=== PATIENT | male | born 1960 | race African-American/Black ===

== ENCOUNTER 2016-06-06 11:13 | Emergency (ER) | payer OTHER, MEDICARE ==
[~2016-06-06] VITALS: Ht 182.9 cm; Wt 119.3 kg
[~2016-06-06 11:13] MED LIST: ALLOPURINOL100 M1 PO; ALLOPURINOL100 MG PO; CARVEDILOL3.125 MG PO; CARVEDILOL6.25 M1 PO; COLCHICINE0.6 M1 PO; COLCHICINE0.6 M2 PO; COLCHICINE0.6 MG PO; COREG 3.125M3.125 MG PO; ECOTRIN81 MG PO; FUROSEMIDE20 MG PO; INDOMETHACIN50 M1 PO; INDOMETHACIN50 MG PO; LISINOPRIL20 MG PO; PERCOCET 325 MG1 TA2 PO; PERCOCET 5-3251 EACH PO; POTASSIUM CHLO20 ME2 PO; PROAIR HFA8.5 GM INH; SIMVASTATIN40 MG PO; SPIRIVA18 MCG INH; SYMBICORT 16010.2 GM INH; [UNRECOGNIZED DRUG - SUPPLY]
--- NOTE | 2016-06-06 12:02 | ED UPPER/LOWER EXTREMITY COMPL ---
History of Present Illness General Chief Complaint: General Adult Stated Complaint: RIGHT ANKLE /RIGHT WRIST PAIN HX GOUT Source: patient Exam Limitations: no limitations Vital Signs & Intake/Output Vital Signs & Intake/Output Vital Signs Date Time Temp Pulse Resp B/P Pulse O2 O2 Flow FiO2 Ox Delivery Rate 06/06 1207 97.0 100 140/89 06/06 1121 96.9 91 16 144/61 98 Room Air Allergies Coded Allergies: NO KNOWN ALLERGIES (03/20/16) Triage Note: PT STATES HE HAS HX OF GOUT AND THINKS HE HAS IT IN HIS RIGHT HAND AND RIGHT FOOT. PT STATES HE MAY HAVE HAD DEVIL EGGS WITH CRAB MEAT IN IT LAST EVENING. Triage Nurses Notes Reviewed? yes HPI: This patient is a 55-year-old male with a past medical history including diabetes and gout who presented to the emergency department today accompanied by his for evaluation of a questionable gout flare. The patient reported that last night he ate deviled eggs and did not realize that there was seafood in it. He reported that he woke up this morning with 10 on 10 pain in his right wrist and right ankle. He reported that the areas are throbbing, swollen, and constant in nature. Worse with movement. No palliative factors. The patient did try taking his previously prescribed colchicine without any relief of his symptoms. The patient denied any fevers or chills. He denied any trauma to the areas. (ANTONINO MARCUM,FOREST) Reconcile Medications Albuterol Sulfate (Albuterol Sulfate Hfa) 0.09 MG/Actuation CECILIA 2 PUFF INH Q4- 6 PRN PRN SHORTNESS OF BREATH (Reported) 90 MCG PER PUFF Allopurinol 100 MG TABLET 1 TAB PO DAILY GOUT Allopurinol 100 MG TABLET 1 TAB PO DAILY GOUT Aspirin (Ecotrin) 81 MG ECT 1 TAB PO DAILY HEART (Reported) Budesonide/Formoterol Fumara (Symbicort 160-4.5 Mcg Inhaler) 160 MCG/4.5 MCG PUF 2 PUF INH BID ASTHMA/COPD (Reported) Carvedilol 6.25 MG TAB 1 TAB PO BID HEART (Reported) Colchicine 0.6 MG TAB 1 TAB PO DAILY gout Colchicine 0.6 MG TABLET 1 TAB PO DAILY GOUT Furosemide 20 MG TAB 1 TAB PO DAILY DIURETIC (Reported) Indomethacin 50 MG CAPSULE 1 CAP PO TID GOUT with food Lisinopril 20 MG TABLET 1 TAB PO DAILY BP (Reported) Oxycodone HCl/Acetaminophen (Percocet 5-325 MG Tablet) 5 MG-325 MG TABLET 1 TAB PO TID PRN PAIN Oxycodone HCl/Acetaminophen (Percocet 5-325 MG Tablet) 5 MG-325 MG TABLET 1 TAB PO BID PRN PAIN Potassium Chloride 20 MEQ TAB.ER.PRT 1 TAB PO DAILY SUPPLEMENT (Reported) Simvastatin 40 MG TABLET 1 TAB PO QPM CHOLESTEROL (Reported) Tiotropium [place] (Spiriva) 18 MCG CAP 1 CAP INH DAILY COPD (Reported) (JUAN MICHAELS,MARGIE) Past History Travel History Traveled to [place] past 21 day No Medical History Any Pertinent Medical History? 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 No (FOREST MUÑIZ PA-C) Review of Systems Review of Systems Constitutional: Reports: no symptoms. EENTM: Reports: no symptoms. Respiratory: Reports: no symptoms. Cardiovascular: Reports: no symptoms. Gastrointestinal/Abdominal: Reports: no symptoms. Musculoskeletal: Reports: see HPI. Skin: Reports: see HPI. Neurological/Psychological: Reports: no symptoms. All Other Systems: Reviewed and Negative (FOREST MUÑIZ PA-C) Physical Exam Physical Exam General Appearance: well developed/nourished, no apparent distress, alert, awake Comments: Well-developed well-nourished person in no acute distress HEENT: Normal EENT exam, head normocephalic, moist mucous membranes Neck: Supple Back: Normal inspection Cardiovascular: Regular rate and rhythm with no murmurs Respiratory: No respiratory distress. Speaking sentences Right upper extremity: Edema circumferentially to the wrist with limited range of motion at the wrist due to pain. Mild amount of overlying erythema. No overlying ecchymosis. No bony or muscular deformities. Radial brachial pulses 2+ and strong. Capillary refill less than 2 seconds. Exquisitely tender to palpation over the wrist Right lower extremity: Circumferential edema to the ankle with limited range of motion of the ankle due to pain. Mild amount of overlying erythema with no overlying ecchymosis. No bony or muscular deformities noted. Dorsalis pedis and posterior tibialis pulses 2+ and strong. Tender to palpation over the ankle. Capillary refill less than 2 seconds. Neuro: Alert oriented x3, cranial nerves II through XII grossly intact. Skin: No appreciable rash on exposed skin, skin is warm and dry. Psych: Mood and affect is normal (FOREST MUÑIZ PA-C) Progress Differential Diagnosis: arterial insufficiency, cellulitis, CHF, compartment syndrome, contusion, dislocation, DVT, fracture, gout, septic arthritis, sprain, tendon injury Plan of Care: Current Medications Sig/Hodan Start time Last Medication Dose Stop Time Status Admin Ketorolac 60 MG ONCE ONE 06/06 1214 UNVr Tromethamine 06/06 1216 (Toradol) Departure Departure Disposition: HOME OR SELF CARE Condition: Stable Clinical Impression Primary Impression: Gout flare Qualifiers: Gout site: wrist Gout etiology: unspecified cause Laterality: right Qualified Code: M10.9 - Gout, unspecified Referrals: CRYSTAL HAY APRN (PCP/Family) Additional Instructions: Please take indomethacin as prescribed. Take Percocet for breakthrough pain. Avoid seafood and red meat. Please follow-up with your primary care physician. Return for any worsening symptoms or concerns. Departure Forms: Customer Survey General Discharge Information Prescriptions: Current Visit Scripts Indomethacin 1 CAP PO TID #30 CAP with food Oxycodone HCl/Acetaminophen (Percocet 5-325 MG Tablet) 1 TAB PO BID PRN PAIN #6 TAB (FOREST MUÑIZ PA-C) PA/DYE WINCH OPERATOR Co-Sign Statement Statement: ED Attending supervision documentation- [] I saw and evaluated the patient. I have also reviewed all the pertinent lab results and diagnostic results. I agree with the findings and the plan of care as documented in the PA's/DYE WINCH OPERATOR's documentation. x I have reviewed the ED Record and agree with the PA's/DYE WINCH OPERATOR's documentation. [] Additions or exceptions (if any) to the PAs/DYE WINCH OPERATOR's note and plan are summarized below: [] (JUAN MICHAELS,MARGIE)
[2016-06-06 12:07] VITALS: BP 140/89
[2016-06-06] MEDS ORDERED: INDOMETHACIN50 M1 PO (12:20)
[2016-06-06] MEDS ORDERED: PERCOCET 5-3251 EACH PO (12:20)
[2016-09-15] MEDS ORDERED: CLOPIDOGREL75 M1 PO (20:39)
[2016-09-15] MEDS ORDERED: LISINOPRIL20 M1 PO (20:42)
[2016-09-15] MEDS ORDERED: FUROSEMIDE40 M1 PO (20:42)
[2016-09-15] MEDS ORDERED: ATORVASTATIN CA80 M1 PO (20:44)
[2016-09-15] MEDS ORDERED: COLCHICINE0.6 M3 PO (20:50)
[2016-09-15] MEDS ORDERED: INDOMETHACIN50 M1 PO (20:50)
== END 2016-06-06 12:36 ==
LOC: ERH 11:13
DX: M1A.9XX0 Chronic gout, unspecified, without tophus (tophi) (principal)
CPT/HCPCS: 96372; J1885

== ENCOUNTER 2016-07-27 16:46 | Emergency (ER) | payer OTHER, MEDICARE ==
[~2016-07-27] VITALS: Ht 182.9 cm; Wt 119.3 kg
[2016-07-27 17:01] VITALS: BP 143/88
--- NOTE | 2016-07-27 17:21 | ED ANKLE/FOOT INJURY COMPLAINT ---
History of Present Illness General Chief Complaint: Lower Extremity Problems Stated Complaint: GOUT LFT ANKLE Source: patient, old records Exam Limitations: no limitations Vital Signs & Intake/Output Vital Signs & Intake/Output Vital Signs Date Time Temp Pulse Resp B/P B/P Pulse O2 O2 Flow FiO2 Mean Ox Delivery Rate 07/27 1701 98.8 88 18 143/88 97 Room Air Allergies Coded Allergies: NO KNOWN ALLERGIES (03/20/16) Reconcile Medications Albuterol Sulfate (Albuterol Sulfate Hfa) 0.09 MG/Actuation CECILIA 2 PUFF INH Q4- 6 PRN PRN SHORTNESS OF BREATH (Reported) 90 MCG PER PUFF Allopurinol 100 MG TABLET 1 TAB PO DAILY GOUT Allopurinol 100 MG TABLET 1 TAB PO DAILY GOUT Aspirin (Ecotrin) 81 MG ECT 1 TAB PO DAILY HEART (Reported) Budesonide/Formoterol Fumara (Symbicort 160-4.5 Mcg Inhaler) 160 MCG/4.5 MCG PUF 2 PUF INH BID ASTHMA/COPD (Reported) Carvedilol 6.25 MG TAB 1 TAB PO BID HEART (Reported) Colchicine 0.6 MG TAB 1 TAB PO DAILY gout Colchicine 0.6 MG TABLET 1 TAB PO DAILY GOUT Furosemide 20 MG TAB 1 TAB PO DAILY DIURETIC (Reported) Ibuprofen 800 MG TABLET 1 TAB PO TID gout Indomethacin 50 MG CAPSULE 1 CAP PO TID GOUT with food Lisinopril 20 MG TABLET 1 TAB PO DAILY BP (Reported) Methylprednisolone. (Medrol) 4 MG TAB.DS.PK 1 DP PO AD gout 6 on day 1 then reduce by one tablet daily until gone Oxycodone HCl/Acetaminophen (Percocet 5-325 MG Tablet) 5 MG-325 MG TABLET 1-2 TAB PO Q8P PRN pain Oxycodone HCl/Acetaminophen (Percocet 5-325 MG Tablet) 5 MG-325 MG TABLET 1 TAB PO TID PRN PAIN Oxycodone HCl/Acetaminophen (Percocet 5-325 MG Tablet) 5 MG-325 MG TABLET 1 TAB PO BID PRN PAIN Potassium Chloride 20 MEQ TAB.ER.PRT 1 TAB PO DAILY SUPPLEMENT (Reported) Simvastatin 40 MG TABLET 1 TAB PO QPM CHOLESTEROL (Reported) Tiotropium [place] (Spiriva) 18 MCG CAP 1 CAP INH DAILY COPD (Reported) Triage Note: PT TO TRIAGE WITH C/O LEFT ANKLE SWELLING AND PAIN 01/11 SINCE THIS MORNING. PT DENIES ANY INJURY. HX OF GOUT. VSS. Triage Nurses Notes Reviewed? yes Occurred: just prior to arrival Duration: day(s):, constant, continues in ED Timing: recent history Severity: moderate, severe Pain/Injury Location: Left: Ankle. No Modifying Factors: none HPI: 55-year-old male comes into emergency room with complaints of left ankle pain. Patient has a history of gout and reports that it feels similar. Exacerbation began today. Denies any fever chills. Denies any falls or injuries. Patient reports she has not twisted his ankle. Denies any possibility of fracture. Denies any other associated symptoms. Patient reports she normally gets gout in his left ankle. Past History Travel History Traveled to [place] past 21 day No Medical History Any Pertinent Medical History? 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 No Review of Systems Review of Systems Constitutional: Reports: no symptoms. EENTM: Reports: no symptoms. Respiratory: Reports: no symptoms. Cardiovascular: Reports: no symptoms. GI: Reports: no symptoms. Genitourinary: Reports: no symptoms. Musculoskeletal: Reports: see HPI. Skin: Reports: see HPI. Neurological/Psychological: Reports: no symptoms. Hematologic/Endocrine: Reports: no symptoms. Immunologic/Allergic: Reports: no symptoms. All Other Systems: Reviewed and Negative Physical Exam Physical Exam General Appearance: well developed/nourished, mild distress Head: atraumatic Eyes: Bilateral: normal appearance. Ears, Nose, Throat: normal ENT inspection, hearing grossly normal Neck: normal inspection Cardiovascular/Respiratory: no respiratory distress Back: normal inspection Leg/Knee/Thigh Left: normal range of motion Ankle Left: soft tissue tenderness, swelling Foot Left: normal inspection Neuro/Vascular: normal motor function, normal sensation Psychiatric: awake, alert, oriented x 3 Skin: intact, normal color, warm/dry Progress Differential Diagnosis: CHF, cellulitis, septic arthritis, gout, fracture, dislocation, sprain, contusion Plan of Care: Current Medications Sig/Hodan Start time Last Medication Dose Stop Time Status Admin Ketorolac 60 MG ONCE ONE 07/27 1729 UNVr 07/27 Tromethamine 07/271 1726 (Toradol) Comments: 07/27/2016 5:35:28 PM Patient has a history of gout and was treated appropriately. Patient will follow-up with his primary. Return if any concerns. Patient reports it feels sick his previous gout. Departure Departure Disposition: HOME OR SELF CARE Condition: Stable Clinical Impression Primary Impression: Acute gouty arthritis Referrals: UNKNOWN (PCP/Family) Additional Instructions: Take Medrol Dosepak, ibuprofen, Percocet for pain. Follow-up with your primary care doctor. Please go over all results of today's visit with your primary care doctor. Contact your primary care doctor to let them know you were here in the emergency room. There may be nonspecific findings which may not be related to your visit today here in the emergency room but may require further evaluation and chronic monitoring by your primary care doctor. If you had a laceration today the chance of foreign body always remains. You should follow-up with your primary care doctor for recheck in 3-5 days for a wound check. If you had an x-ray done there is a chance that a fracture could have been missed on initial read and you should follow-up with your primary care doctor for repeat x-rays if symptoms persist. If your blood pressure was elevated here in the emergency room please have rechecked by her primary care doctor within the next 48 hours by your primary care doctor. If you were prescribed a narcotic here in the emergency room or any type of controlled substances you're not allowed to drive while taking this medication or operate any type of heavy machinery. Narcotics can make you feel lightheaded dizziness nausea and can cause constipation. You may need to roll picker a stool softener. Thank you for choosing [facility] emergency room. Please return to the emergency room immediately if you have any other concerns worsening of symptoms. Departure Forms: Customer Survey General Discharge Information Prescriptions: Current Visit Scripts Ibuprofen 1 TAB PO TID #30 TAB Methylprednisolone. (Medrol) 1 DP PO AD #1 DP 6 on day 1 then reduce by one tablet daily until gone Oxycodone HCl/Acetaminophen (Percocet 5-325 MG Tablet) 1-2 TAB PO Q8P PRN pain #10 TAB
[2016-07-27] MEDS ORDERED: IBUPROFEN800 M1 PO (17:23)
[2016-07-27] MEDS ORDERED: MEDROL4 M2 PO (17:23)
[2016-07-27] MEDS ORDERED: PERCOCET 5-3251 EACH PO (17:23)
[2016-09-15] MEDS ORDERED: CLOPIDOGREL75 M1 PO (20:39)
[2016-09-15] MEDS ORDERED: FUROSEMIDE40 M1 PO (20:42)
[2016-09-15] MEDS ORDERED: LISINOPRIL20 M1 PO (20:42)
[2016-09-15] MEDS ORDERED: ATORVASTATIN CA80 M1 PO (20:44)
[2016-09-15] MEDS ORDERED: COLCHICINE0.6 M3 PO (20:50)
[2016-09-15] MEDS ORDERED: INDOMETHACIN50 M1 PO (20:50)
== END 2016-07-27 17:32 ==
LOC: ERH 16:46
DX: M10.9 Gout, unspecified (principal)
CPT/HCPCS: 96372; J1885

== ENCOUNTER 2017-04-12 17:55 | Emergency (ER) | payer OTHER, MEDICARE ==
[~2017-04-12] VITALS: Ht 182.9 cm; Wt 114.3 kg
[~2017-04-12 17:55] MED LIST changes: +ATORVASTATIN CA80 M1 PO; +CLOPIDOGREL75 M1 PO; +COLCHICINE0.6 M3 PO; +FLONASE ALLERG9.9 ML NAS; +FUROSEMIDE40 M1 PO; +IBUPROFEN800 M1 PO; +INDOMETHACIN25 M1 PO; +LISINOPRIL20 M1 PO; +MEDROL4 M2 PO; +NEURONTIN300 M1 PO; +TYLENOL WITH C1 EACH PO
--- NOTE | 2017-04-12 22:23 | ED ANKLE/FOOT INJURY COMPLAINT ---
History of Present Illness General Chief Complaint: General Adult Stated Complaint: SEEN THIS AM FOR GOUT, PAIN MED NOT WORKING Source: patient, family Exam Limitations: no limitations Vital Signs & Intake/Output Vital Signs & Intake/Output Vital Signs Date Time Temp Pulse Resp B/P B/P Pulse O2 O2 Flow FiO2 Mean Ox Delivery Rate 04/12 2105 98.5 78 19 130/78 99 Room Air 04/12 1810 97.1 87 18 139/94 97 Room Air Allergies Coded Allergies: No Known Allergies (09/15/16) Reconcile Medications Allopurinol 100 MG TABLET 1 TAB PO DAILY GOUT Atorvastatin Calcium 80 MG TABLET 1 TAB PO DAILY CHOLESTEROL (Reported) Budesonide/Formoterol Fumarate (Symbicort 160-4.5 Mcg Inhaler) 160 MCG-4.5 MCG/ ACTUATION HFA.AER.AD 2 PUF INH BID COPD (Reported) Carvedilol 6.25 MG TABLET 1 TAB PO BID HEART/BP (Reported) Clopidogrel Bisulfate (Clopidogrel) 75 MG TABLET 1 TAB PO DAILY BLOOD THINNER (Reported) Fluticasone Propionate (Flonase Allergy Relief) 50 MCG/ACTUATION SPRAY.SUSP 2 SPRAY SARKIS DAILY SINUS CONGESTION Furosemide 40 MG TABLET 1 TAB PO BID DIURETIC (Reported) Gabapentin (Neurontin) 300 MG CAPSULE 1 CAP PO TID NEUROPATHY Indomethacin 25 MG CAPSULE 1 CAP PO TID PRN PAIN with food Indomethacin 50 MG CAPSULE 1 CAP PO TID PRN FOOT PAIN/GOUT with food Indomethacin 50 MG CAPSULE 1 CAP PO TID PRN GOUT with food Lisinopril 20 MG TABLET 1 TAB PO DAILY BP (Reported) Oxycodone HCl/Acetaminophen (Percocet 5-325 MG Tablet) 5 MG-325 MG TABLET 1 TAB PO Q6P PRN pain Potassium Chloride 20 MEQ TAB.ER.PRT 1 TAB PO DAILY SUPPLEMENT (Reported) Tiotropium [place] (Spiriva) 18 MCG CAP.W.DEV 1 CAP INH DAILY COPD (Reported) Tylenol With Codeine (Tylenol With Codeine #3 Tablet) 300 MG-30 MG TABLET 1 TAB PO BIDP PRN pain Triage Note: PT SATES SHE WAS SEEN HERE THIS AM FOR GOUT AND HIS PAIN MED IS NOT WORKING. PT WAS GIVEN TYL #3 FOR PAIN. PT STATES HE IS ALSO HAVING CHEST PAIN THAT STARTED A FEW MINUTES AGO. Triage Nurses Notes Reviewed? yes HPI: Patient presents for evaluation of bilateral foot pain secondary to gout. Patient has suffered similar flareups in the past. He has been taking Tylenol with Codeine as the result of a emergency department visit a few days ago but he isn't receiving any pain relief. Patient states the pain is a constant throbbing and sharp pain of the right foot and left ankle. Past History Travel History Traveled to [place] past 21 day No Medical History Any Pertinent Medical History? 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 No Review of Systems Review of Systems Constitutional: Reports: no symptoms. EENTM: Reports: no symptoms. Respiratory: Reports: no symptoms. Cardiovascular: Reports: no symptoms. GI: Reports: no symptoms. Genitourinary: Reports: no symptoms. Musculoskeletal: Reports: see HPI. Skin: Reports: no symptoms. Neurological/Psychological: Reports: no symptoms. Hematologic/Endocrine: Reports: no symptoms. Immunologic/Allergic: Reports: no symptoms. All Other Systems: Reviewed and Negative Physical Exam Physical Exam Leg/Knee/Thigh Left: SEE BELOW Comments: Gen.: Well-nourished, well-developed, no acute respiratory distress. Head: Normocephalic, atraumatic. Eyes: Normal inspection bilaterally Ears: Normal inspection bilaterally Nose: Normal inspection Throat/mouth : Moist mucosa Neck: Supple, full range of motion, no goiter Heart: Regular rate and rhythm Lungs: Quiet respirations Back: Normal range of motion Extremities: Lower extremity exam: Mild swelling of the ankles and feet bilaterally without erythema or warmth. Tenderness of both ankles to palpation and pain with movement. Both lower cavities are neurovascularly intact distally. Neurologic: Cranial nerves grossly intact, speech is clear Skin: warm and dry Psychiatric: Calm, cooperative, no apparent delusions or hallucinations Progress Differential Diagnosis: GOUT, ARTHRITIS, SPRAIN, CELLULITIS Plan of Care: Orders Procedure Date/time Status EKG 04/12 1812 Active Current Medications Sig/Hodan Start time Last Medication Dose Stop Time Status Admin Ketorolac 30 MG ONE ONE 04/12 2229 UNVr 04/12 Tromethamine 04/12 2230 2251 (Toradol) Departure Departure Disposition: HOME OR SELF CARE Condition: Stable Clinical Impression Primary Impression: Gout attack Qualifiers: Gout site: foot Gout etiology: unspecified cause Laterality: unspecified laterality Qualified Code: M10.9 - Gout, unspecified Referrals: Mamta Bales APRN (PCP/Family) Additional Instructions: Rest, no exertion or heavy lifting. Begin colchicine as prescribed previously. Percocet as needed for pain. Follow-up with your primary care physician on or Tuesday. Return if any concerns or sudden worsening. Thank you for choosing the [facility] Emergency Department for your care. It was a pleasure to serve you today. Glen Lovelace M.D. [facility] Departure Forms: Customer Survey General Discharge Information Prescriptions: Current Visit Scripts Oxycodone HCl/Acetaminophen (Percocet 5-325 MG Tablet) 1 TAB PO Q6P PRN pain #10 TAB [cane] #1 use as needed during ambulation
[2017-04-12] MEDS ORDERED: PERCOCET 5-3251 EACH PO (23:20)
[2017-04-12 23:29] VITALS: BP 132/76
[2017-04-12] MEDS ORDERED: cane (23:29)
== END 2017-04-12 23:34 ==
LOC: ERH 17:55
DX: M10.9 Gout, unspecified (principal); I10 Essential (primary) hypertension
CPT/HCPCS: 93005; 93010; 96372; J1885